=== PATIENT | female | born 1970 | race Caucasian/White ===

== ENCOUNTER 2025-03-17 13:13 | Inpatient (IN) | payer OTHER ==
[~2025-03-17] VITALS: Ht 172.7 cm; Wt 113.9 kg
[2025-03-17 13:14] VITALS: O2SAT 98
[2025-03-17] MEDS ORDERED: ONDANSETRON HCL 4MG/2ML INJ IV ONE (14:15)
[2025-03-17] MEDS ORDERED: MAGNESIUM/ALUMINUM HYDROXIDE/SIMETHICONE 30ML UDC PO ONE (14:15)
[2025-03-17] MEDS ORDERED: ACETAMINOPHEN 500MG TABLET PO ONE (14:15)
[2025-03-17] MEDS ORDERED: KETOROLAC 15MG/ML VIAL IV ONE (14:15)
[2025-03-17 14:25] LABS: HEMATOCRIT. 36.9 % (36.0-48.0); HEMOGLOBIN. 11.4 g/dL (12.0-16.0); MEAN PLATELET VOLUME 8.6 fl (7.4-10.4); PLATELET 241 x1000/uL (130-400); RED BLOOD CELL COUNT 4.59 mill/uL (4.2-5.4); RED CELL DISTRIBUTION WIDTH 16.6 % (11.6-14.6)
[2025-03-17 14:39] LABS: CREATININE 0.7 mg/dL (0.6-1.0); UREA NITROGEN BLOOD 11 mg/dL (9-23)
[2025-03-17 14:41] LABS: ASPARTATE AMINOTRANSFERASE 565 IU/L (<34); BILIRUBIN DIRECT 0.4 mg/dL (<=3.0)
[2025-03-17 14:42] LABS: BILIRUBIN TOTAL 0.8 mg/dL (0.1-1.0); PROTEIN TOTAL 7.4 g/dL (6.0-8.3)
[2025-03-17 14:52] LABS: BAND% 4.0 % (1.0-6.0); LYMPHOCYTES % MANUAL 11.0 % (20.0-60.0); MONOCYTES % MANUAL 5.0 % (2.0-8.0); NEUTROPHILS % MANUAL 80.0 % (45.0-75.0); PLATELET ESTIMATE NORMAL
[2025-03-17] MEDS: SODIUM CHLORIDE 0.9% 1,000 ML IV ONE (15:57)
[2025-03-17] MEDS: KETOROLAC 15MG/ML VIAL IV NR (16:17)
[2025-03-17] MEDS: ACETAMINOPHEN 500MG TABLET PO NR (16:17)
[2025-03-17] MEDS: MAGNESIUM/ALUMINUM HYDROXIDE/SIMETHICONE 30ML UDC PO NR (16:17)
[2025-03-17] MEDS: ONDANSETRON HCL 4MG/2ML INJ IV NR (16:17)
[2025-03-17] MEDS: DIPHENHYDRAMINE 50MG/ML VIAL IV ONE (16:49)
[2025-03-17] MEDS ORDERED: IPRATROPIUM/ALBUTEROL 0.5-3(2.5)MG/3ML NEB HHN PRN (18:30)
[2025-03-17] MEDS ORDERED: CLONIDINE 0.1MG TABLET PO PRN (19:45)
[2025-03-17] MEDS ORDERED: ONDANSETRON HCL 4MG/2ML INJ IV PRN (19:45)
[2025-03-17 20:00] VITALS: BP 130/74; PULSE 87; RESP 18; TEMP 37.4; O2SAT 99
[2025-03-17] MEDS: SODIUM CHLORIDE 0.9% 500 ML IV ONE (21:51)
[2025-03-17] MEDS: DEXT 5%/0.45% NACL 1000ML 1,000 ML IV SCH (21:51)
[2025-03-17 22:31] VITALS: BP 126/79; PULSE 77; RESP 18; TEMP 36.8628
[2025-03-18] VITALS (7 sets, daily range): BP systolic 109–149; BP diastolic 53–84; PULSE 80–89; RESP 17–20; TEMP 36.1–36.6; O2SAT 95–99
[2025-03-18 07:17] LABS: BASOPHILS % 0.9 % (0.0-2.0); EOSINOPHILS % 2.2 % (0.0-5.0); HEMATOCRIT. 32.0 % (36.0-48.0); HEMOGLOBIN. 10.0 g/dL (12.0-16.0); LYMPHOCYTES % 15.7 % (20.0-50.0); MEAN PLATELET VOLUME 8.6 fl (7.4-10.4); MONOCYTES % 6.1 % (2.0-8.0); NEUTROPHILS % 75.1 % (40.0-76.0); PLATELET 207 x1000/uL (130-400); RED BLOOD CELL COUNT 4.03 mill/uL (4.2-5.4); RED CELL DISTRIBUTION WIDTH 16.8 % (11.6-14.6)
[2025-03-18 07:36] LABS: CREATININE 0.7 mg/dL (0.6-1.0); TRIGLYCERIDE 167 mg/dL (0-150); UREA NITROGEN BLOOD 9 mg/dL (9-23)
[2025-03-18 07:37] LABS: LDL CHOLESTEROL 140 mg/dL (5-100)
[2025-03-18 07:37] LABS: ASPARTATE AMINOTRANSFERASE 129 IU/L (<34); BILIRUBIN DIRECT 0.2 mg/dL (<=3.0); BILIRUBIN TOTAL 0.6 mg/dL (0.1-1.0); PROTEIN TOTAL 6.3 g/dL (6.0-8.3)
[2025-03-18 07:40] LABS: T4 FREE 1.07 ng/dL (0.89-1.76)
[2025-03-18 08:35] LABS: CLARITY URINE CLOUDY (CLEAR); COLOR URINE DARK YELLOW (YELLOW); GLUCOSE URINE NEGATIVE (NEGATIVE); KETONES URINE TRACE (NEGATIVE); LEUKOCYTE ESTERASE URINE 1+ (NEGATIVE); NITRITE URINE POSITIVE (NEGATIVE); OCCULT BLOOD URINE 3+ (NEGATIVE); PH URINE 5.5 (4.5-8.0); PROTEIN URINE 1+ (NEGATIVE); SPECIFIC GRAVITY URINE 1.029 (1.005-1.030); UROBILINOGEN URINE 0.2 E.U./dL (0.2-1.0)
[2025-03-18 09:04] LABS: *AMPHETAMINES SCREEN URINE NEGATIVE (NEGATIVE); *BENZODIAZEPINES SCREEN URINE NEGATIVE (NEGATIVE)
[2025-03-18 09:05] LABS: *BARBITURATES SCREEN URINE NEGATIVE (NEGATIVE); *COCAINE SCREEN URINE NEGATIVE (NEGATIVE); CANNABINOID URINE SCREEN NEGATIVE (NEGATIVE); ECSTASY MDMA SCREEN URINE NEGATIVE (NEGATIVE); METHADONE URINE SCREEN NEGATIVE (NEGATIVE); OPIATES URINE SCREEN NEGATIVE (NEGATIVE); PHENCYCLIDINE URINE SCREEN NEGATIVE (NEGATIVE)
[2025-03-18 09:19] LABS: SQUAMOUS EPITHELIAL CELL URINE 2+ /lpf (RARE/1+)
[2025-03-18 09:20] LABS: BACTERIA URINE 4+; RBC URINE TNTC /hpf (0-2)
[2025-03-18 09:21] LABS: WBC URINE 15-25 /hpf (0-2)
[2025-03-18] MEDS: PANTOPRAZOLE SODIUM 40 MG/VIAL IV SCH (10:07)
[2025-03-18] MEDS: KCL 20MEQ/100ML PREMIX 100 ML IV NR (12:55)
[2025-03-18] MEDS: CEFTRIAXONE 1GM/50ML 50 ML IV SCH (14:00)
[2025-03-18] MEDS ORDERED: SULF1TAB48 MT (19:13)
== END 2025-03-18 21:27 | disposition home or self-care (01) | DRG 392 ==
LOC: ER 13:39 → EDBEDREQ 14:08 → EDBEDREQTM 16:43 → EDBEDREQSVC 16:43 → EDBEDREQ 16:43 → CANRESERV 16:59 → ENRESERV 16:59 → EDBEDREQSVC 17:10 → ENRESERV 18:26 → 8WST 18:50 → 6EST 03-18 08:40 → 8WST 03-18 09:46 → 6EST 03-18 09:48
PROVIDERS: ADMIT Hospitalist; ATTEND Hospitalist
DX: A08.4 Viral intestinal infection, unspecified (principal); A04.9 Bacterial intestinal infection, unspecified; D25.9 Leiomyoma of uterus, unspecified; K29.00 Acute gastritis without bleeding; N80.9 Endometriosis, unspecified; G43.909 Migraine, unspecified, not intractable, without status migrainosus; R74.01 Elevation of levels of liver transaminase levels; M79.7 Fibromyalgia; E66.01 Morbid (severe) obesity due to excess calories; Z68.38 Body mass index [BMI] 38.0-38.9, adult; Z80.0 Family history of malignant neoplasm of digestive organs; Z79.899 Other long term (current) drug therapy
CPT/HCPCS: 36415; 76705; 80048; 80061; 80076; 80305; 81003; 84439; 84443; 85025; 87077; 87186; 93970; 96361; 96374; 99291; J0696; J1200; J1885; J2405; J2470; J3480; J7030